=== PATIENT | female | born 1995 ===

== ENCOUNTER 2024-03-29 19:15 | Emergency (ER) | payer BC, OTHER ==
[2024-03-29 19:32] VITALS: BP 125/85; PULSE 75; RESP 17; TEMP 98.2; BMI 21.9
[2024-03-29 20:23] LABS: HEMATOCRIT 41.9 % (32.4-45.2); MCHC 33.3 g/dl (32.0-36.0); MEAN CELL VOLUME 89.9 fl (80-96); MEAN PLT VOLUME 8.5 fl (7.5-11.1); RBC 4.66 10^6/uL (3.60-5.2); RDW 13.7 % (11.6-15.6); WHITE BLOOD COUNT 7.3 10^3/uL (4.0-10.8)
[2024-03-29 20:30] LABS: HCG,QUALITATIVE URINE Negative
[2024-03-29 20:46] LABS: ALBUMIN 4.2 g/dl (3.4-5.0); ALK PHOS 35 U/L (45-117); ANION GAP 8 mmol/L (4-13); BILIRUBIN,TOTAL 0.5 mg/dl (0.2-1); CALCIUM 9.3 mg/dl (8.5-10.1); CHLORIDE 103 mmol/L (98-107); CO2 24 mmol/L (21-32); CREATININE 0.8 mg/dl (0.6-1.3); GLUCOSE,RANDOM 124 mg/dl (74-106); POTASSIUM 3.8 mmol/L (3.5-5.1); SGOT/AST 18 U/L (15-37); SGPT/ALT 11 U/L (7-52); SODIUM 135 mmol/L (136-145)
== END 2024-03-29 21:04 | disposition home or self-care (01) ==
LOC: FER 19:15
DX: R10.30 Lower abdominal pain, unspecified (principal); R11.0 Nausea
CPT/HCPCS: 36415; 80053; 81003; 84443; 84703; 85027; 99283-25